=== PATIENT | male | born 1980 | race African-American/Black ===

== ENCOUNTER 2019-04-07 18:19 | Emergency (ER) | payer SELFPAY ==
[~2019-04-07] VITALS: Ht 190.5 cm; Wt 120.2 kg
--- NOTE | 2019-04-07 18:57 | NUR ---
Assumed care of patient. No acute distress noted. VSS
[2019-04-07] MEDS ORDERED: MORPHINE SULFATE 2 MG/1 ML DISP.SYRIN IV ONE (19:30)
[2019-04-07] MEDS ORDERED: ONDANSETRON 4 MG/2 ML VIAL IV ONE (19:30)
[2019-04-07] MEDS ORDERED: IV NORMAL SALINE 1000 ML BAG IV ONE (19:30)
[2019-04-07 19:37] LABS: BASOPHILS % (AUTO) 0.5 % (0.0-2.0); EOSINOPHILS # (AUTO) 0.1 K/uL (0.0-0.7); EOSINOPHILS % (AUTO) 2.5 % (0.0-7.0); HEMATOCRIT 44.8 % (36.7-47.1); HEMOGLOBIN 14.9 g/dL (12.5-16.3); LYMPHOCYTES # (AUTO) 2.8 K/uL (20.0-40.0); LYMPHOCYTES % (AUTO) 57.9 % (20.5-51.5); MEAN CORPUSCULAR HEMOGLOBIN 29.9 uug (23.8-33.4); MEAN CORPUSCULAR HGB CONC 33 g/dL (32.5-36.3); MONOCYTES # (AUTO) 0.5 K/uL (2.0-10.0); MONOCYTES % (AUTO) 9.6 % (0.0-11.0); NEUTROPHILS # (AUTO) 1.4 K/uL (1.8-8.9); NEUTROPHILS % (AUTO) 29.5 % (38.5-71.5); PLATELET COUNT (AUTO) 205 K/uL (152-348); RED BLOOD CELL COUNT(AUTO) 4.98 MIL/uL (4.06-5.63); WHITE BLOOD COUNT (AUTO) 4.9 K/uL (3.6-10.2)
[2019-04-07 19:44] LABS: CREATININE 1.2 mg/dL (0.6-1.3); POTASSIUM 3.9 mmol/L (3.5-5.1)
[2019-04-07] MEDS ORDERED: ONDANSETRON 4 MG/2 ML VIAL ONE (19:46)
[2019-04-07] MEDS ORDERED: MORPHINE SULFATE 2 MG/1 ML DISP.SYRIN ONE (19:47)
[2019-04-07 19:50] LABS: BILIRUBIN,DIRECT 0.1 mg/dL (0.0-0.2); BILIRUBIN,TOTAL 0.4 mg/dL (0.2-1.0); TOTAL PROTEIN, SERUM 8.1 g/dL (6.4-8.2)
[2019-04-07] MEDS ORDERED: IOHEXOL 350 100 ML INFUS..BTL ONE (19:54)
[2019-04-07] MEDS ORDERED: IV NORMAL SALINE 250 ML IV ONE (19:54)
[2019-04-07] MEDS ORDERED: SWABABLE VALVE TRANSFER SET EA MC ONE (19:54)
--- NOTE | 2019-04-07 20:17 | NUR ---
Patient in bed, no acute distress noted. Awaiting CT scan at this time.
--- NOTE | 2019-04-07 21:00 | NUR ---
Patient in CT at this time.
--- NOTE | 2019-04-07 21:19 | NUR ---
Patient back from CT. no acute distress noted. VSS
[2019-04-07] MEDS ORDERED: HYDROMORPHONE 1 MG/1 ML DISP.SYRIN IV ONE (21:30)
[2019-04-07] MEDS ORDERED: HYDROMORPHONE 1 MG/1 ML DISP.SYRIN ONE (21:36)
[2019-04-07] MEDS ORDERED: predniSONE 20 MG TABLET ONE (21:37)
--- NOTE | 2019-04-07 21:40 | NUR ---
Patient discharged to home in stable conditon. Written and verbal after care instructions given. Patient verbalizes understanding of instructions. Ambulated from ER with stable gait. Peripheral IV removed prior to d/c. Patient to be driven home by taxi. All belongings with patient.
[2019-04-07 21:41] VITALS: BP 123/78
[2019-04-07] MEDS ORDERED: predniSONE 20 MG TABLET PO ONE (21:45)
== END 2019-04-07 21:43 | disposition home or self-care (01) ==
LOC: ER 18:23
DX: M54.9 Dorsalgia, unspecified (principal)
CPT/HCPCS: 36415; 71275; 74174; 80048; 80076; 85025; 85730; 96374; 96375; 99284; J1170; J2270; J2405; J7512; Q9967; A4663; J7050